=== PATIENT | female | born 1990 | race African-American/Black ===

== ENCOUNTER 2021-07-03 22:04 | Emergency (ER) | payer OTHER ==
[~2021-07-03] VITALS: Ht 167.6 cm; Wt 81.7 kg
--- NOTE | ~2021-07-03 | EMS ---
[place] [address] EMS Patient Care Report Name: ARIS MALAVE Room #: DEP Tana#: [id number] Admission: 07/03/21 Attend Phys: Discharge: 07/04/21 Date of : [birth year] Report #: [id number] THIS REPORT FOR: //name// Report Transmitted: 07/04/2021 09:50 EMS Care Summary [place], [place]/[facility] Incident [id number] @ 07/03/2021 21:40 Incident Location [id number] [place] [address] [address] [place] [address] Patient ARIS MLAAVE Female, 30 Years 1990 Patient Address [address] [place] [address] Patient History None Reported, Patient Allergies No known allergies, Patient Medications None Reported, Chief Complaint OVERDOSE MARIJUANA Disposition Transported No Lights/[place] Dispatch Reason Allergic Reaction/Stings Transported To [facility] Narrative SCENE: ON ARRIVAL PT FOUND STANDING UPRIGHT IN KITCHEN AT ADDRESS PROVIDED. PT IS AWAKE AND ALERT WITH AGCS OF 15. [facility] OFFICERS AND [place] [address] EMS Patient Care Report Name: ARIS MALAVE Room #: DEP JustineFlorentino#: [id number] Admission: 07/03/21 Attend Phys: Discharge: 07/04/21 Date of : [birth year] Report #: [id number] REPORTING PT TEXTED A FAMILY MEMBER ASKING THEM TO CALL 911 FOR HER. PT REPORTEDLY TOOK A PRESCRIBED DOSE OF MELOXICAM, THEN ATE A MARIJUANA EDIBLE OF UNKNOWN THC LEVEL. PT REQUESTING TRANSPORT TO ER. PT ASSISTED TO EMS UNIT AND SECURED TO STRETCHER. AMBULANCE: VITALS MONITORED. NO CHANGES Initial Vitals @21:52P: 128,R: 22,Pain: 0/10,GCS: 15,Revised Trauma: 12, @22:07P: 120,R: 20,BP: 148/90,GCS: 15,Revised Trauma: 12, Assessments @21:52MENTAL:No Abnormalities,SKIN:HEENT:Head/Face: No Abnormalities,Neck/Airway: No Abnormalities,LUNG SOUNDS:General: No Abnormalities,ABDOMEN:General: No Abnormalities,PELVIS//GI:No Abnormalities,EXTREMITIES:Left Arm: No Abnormalities,Right Arm: No Abnormalities,Left Leg: No Abnormalities,Right Leg: No Abnormalities,PULSE:NEURO:No Abnormalities,@22:08MENTAL:No Abnormalities,SKIN:No Abnormalities,HEENT:Head/Face: No Abnormalities,Eyes: No Abnormalities,Neck/Airway: No Abnormalities,LUNG SOUNDS:General: No Abnormalities,Left Upper: No Abnormalities,Right Upper: No Abnormalities,Left Lower: No Abnormalities,Right Lower: No Abnormalities,ABDOMEN:General: No Abnormalities,Left Upper: No Abnormalities,Right Upper: No Abnormalities,Left Lower: No Abnormalities,Right Lower: No Abnormalities,PELVIS//GI:No Abnormalities,EXTREMITIES:Left Arm: No Abnormalities,Right Arm: No Abnormalities,Left Leg: No Abnormalities,Right Leg: No Abnormalities,PULSE:NEURO:No Abnormalities, Impression Overdose - Cannabis Procedures @21:51ALS AssessmentResponse: UnchangedSucceeded@21:54StretcherResponse: Unchanged Timeline 21:40,Call Received 21:40,Dispatch Notified 21:40,Dispatched 21:41,En Route 21:48,On Scene 21:50,At Patient 21:51,ALS Assessment,Response: UnchangedSucceeded, 21:52,BP: 150/ M,PULSE: 128,RR: 22 R,SPO2: Ox,ETCO2: ,BG: ,PAIN: 0,GCS: 15, 21:54,Stretcher,Response: Unchanged 21:57,Depart Scene [address] [address] EMS Patient Care Report Name: ARIS MALAVE Room #: [facility] [id number] Admission: 07/03/21 Attend Phys: Discharge: 07/04/21 Date of : [birth year] Report #: [id number] 22:07,BP: 148/90 M,PULSE: 120,RR: 20 R,SPO2: Ox,ETCO2: ,BG: ,PAIN: ,GCS: 15, 22:11,At Destination 22:13,Call Closed Disclaimer v1.1 Copyright 2020 [employer] This EMS Care Summary contains data elements from the applicable legal record (which may be displayed differently). It is designed to provide pertinent information for the following purposes: continuity of care, clinical quality, and state data reporting. The complete legal record is available to ED staff and administrators of the receiving hospital in [facility]'s Patient Tracker. All data is provided "as is."
[2021-07-03] MEDS ORDERED: CLARITIN-D 121 EAC1 PO (22:17)
[2021-07-03 23:32] LABS: HEMATOCRIT 36.5 % (37.0-47.0); HEMOGLOBIN 11.7 gm/dL (12.0-15.0); MCH 28.8 pg (26.0-34.0); MCHC 32.1 g/dL (28.0-37.0); MCV 89.7 fL (80.0-100.0); RBC 4.07 mil/uL (4.20-5.00); RDW 13.9 % (10.5-14.5)
[2021-07-03 23:38] LABS: ANION GAP 11 mmol/L (7-16); BUN 12 mg/dL (7-18); CHLORIDE 105 mmol/L (98-107); CO2 22 mmol/L (21-32); GLUCOSE 125 mg/dL (74-106); POTASSIUM 3.7 mmol/L (3.5-5.1); SODIUM 138 mmol/L (136-145)
[2021-07-03 23:48] LABS: ALBUMIN 3.7 g/dL (3.4-5.0); MAGNESIUM 1.8 mg/dL (1.8-2.4); SALICYLATE < 2.8 mg/dL (2.8-20.0); SGOT 18 U/L (15-37); SGPT 16 U/L (14-59); TOTAL BILIRUBIN 0.3 mg/dL (0.2-1.0); TOTAL PROTEIN 7.8 g/dL (6.4-8.2)
[2021-07-04 01:27] LABS: URINE BILIRUBIN NEGATIVE (Negative); URINE BLOOD 1+ (Negative); URINE CLARITY CLEAR; URINE COLOR YELLOW; URINE GLUCOSE-RANDOM* NEGATIVE (Negative); URINE KETONES NEGATIVE (Negative); URINE LEUKOCYTES-REFLEX NEGATIVE (Negative); URINE NITRITE-REFLEX NEGATIVE (Negative); URINE PROTEIN (DIPSTICK) NEGATIVE (Negative); URINE UROBILINOGEN 0.2 E.U./dl (0.2-1.0)
[2021-07-04 01:38] LABS: AMP/METHAMP Negative (Negative); BARBITURATES Negative (Negative); BENZODIAZEPINES Negative (Negative); COCAINE Negative (Negative); METHADONE Negative (Negative); OPIATES Negative (Negative); PCP Negative (Negative)
[2021-07-04 01:40] VITALS: BP 144/102
[2021-07-04 01:56] LABS: CASTS None Seen /LPF (None Seen); MUCUS 0-3 Light strn/LPF (None Seen); SQUAMOUS 0-3 Few /LPF (0-3); URINE RBC 1-2 Rare /HPF (NONE SEEN)
[2021-07-04 01:57] LABS: BACTERIA-REFLEX None Seen /HPF (None Seen); CRYSTALS None Seen /LPF (None Seen); URINE WBC-REFLEX None Seen /HPF (0-5)
--- NOTE | 2021-07-04 07:10 | EKG ---
[facility] [place] [address] ELECTROCARDIOGRAM REPORT Name: ARIS MALAVE Room #: DEP [facility] [id number] Admission: 07/03/21 Attend Phys: Discharge: 07/04/21 Date of : 86 Report #: [id number] [facility] ED Test Date: 2021-07-04 Test Time: 00:03:06 Pat Name: ARIS MALAVE Department: Room: Gender: F [employer] In[employer]: MAGDALENE : 1990 Requested By: Dashawn Mansfield Order Number: [id number] MD: Tello Ybarra Measurements Intervals [place] Rate: 111 P: 64 [place]: 170 QRS: 96 QRSD: 100 T: 6 QT: 352 QTc: 479 Interpretive Statements Sinus tachycardia Ventricular premature complex Aberrant conduction of SV complex(es) Borderline right axis deviation Borderline T abnormalities, diffuse leads Borderline prolonged QT interval Baseline wander in lead(s) V5 No previous ECG available for comparison Electronically Signed On 07-04-2021 7:10:15 CDT by Tello Ybarra [email or web address] <ELECTRONICALLY SIGNED> By: Tello Ybarra MD, [facility] 07/04/21 0710 0003 0003 Tello Ybarra MD, [facility]ENTERKrysta /EPI
== END 2021-07-04 01:45 | disposition home or self-care (01) ==
LOC: ER 22:04
PROVIDERS: Emergency Medicine
DX: F12.929 Cannabis use, unspecified with intoxication, unspecified (principal); E78.00 Pure hypercholesterolemia, unspecified; Z79.899 Other long term (current) drug therapy